=== PATIENT | male | born 1975 | race Caucasian/White ===

== ENCOUNTER 2016-12-11 12:51 | Emergency (ER) | payer BC, OTHER ==
[2016-12-11 13:00] VITALS: BP 132/80
[2016-12-11] MEDS ORDERED: ALBUTEROL SULFATE 2.5 MG/0.5 ML VIAL.NEB IH ONE ×2 (13:08→13:11)
--- NOTE | 2016-12-11 13:22 | ERNOTE ---
Medical Problem HPI - Narrative Date of Service: 12/11/16 - General Chief Complaint: Flu Symptoms Time Seen by Provider: 12/11/16 13:00 Source: patient Exam Limitations: no limitations - Immun/Allergies/Home Medications Immunizations: IMMUNIZATION HX History of Influenza Vaccine No Allergies/Adverse Reactions: Allergies ibuprofen Allergy (Verified 12/11/16 13:00) Hives Home Medications: HOME MEDICATIONS Albuterol Sulfate [Ventolin Hfa] 2 puff IH Q4H PRN #1 inhaler 12/11/16 [Last Taken Unknown] Doxycycline Monohydrate 100 mg PO BID #20 tablet 12/11/16 [Last Taken Unknown] Venlafaxine HCl [Effexor] 75 mg PO BID 12/11/16 [Last Taken Unknown] predniSONE [Prednisone] 3 tab PO DAILY #9 tab 12/11/16 [Last Taken Unknown] - History of Present History Narrative: Pt. comes in with c/o Dyspnea and SOB for a week and states that he was seen in the [facility] this morning and told he had pneumonia and sent here for treatment. Pt. denies any lab or xrays done at the clinic. Pt. denies any fevers, ear pain, NVD, abd pain, but does state that he has body aches from head to toe and chest pain that worsens with breathing. Review of Systems - Review of Systems Constitutional: Present: recent illness, malaise. Absent: fever, chills EYE: Present: no symptoms reported ENT: Present: nose congestion. Absent: ear pain, nasal drainage, sore throat Respiratory: Present: shortness of breath, cough, wheezing Cardiology: Present: chest pain. Absent: palpitations, edema Gastrointestinal/Abdominal: Present: no symptoms reported. Absent: nausea, vomiting, diarrhea Genitourinary: Present: no symptoms reported. Absent: frequency, decreased urinary output Musculoskeletal: Present: no symptoms reported. Absent: back pain, joint pain Skin: Present: no symptoms reported Neurological: Present: no symptoms reported. Absent: headache, dizziness/light- headedness, numbness, tingling All Other Systems: All systems neg except as marked - Patient's Past Medical History Patient History - Medical: ADHD, Depression Patient History - Cancer: No Hx of Cancer Patient History - Surgical Procedures: Appendectomy, Other - Social History Smoking Status: Current every day smoker Have you smoked in the past 12 months: Yes Physical Exam - Physical Exam General Appearance: Present: wd/wn, alert, no apparent distress Eye Exam: Normal inspection: bilateral, PERRL: bilateral, EOMI: bilateral Ears, Nose, Throat: Present: nasal congestion, sinus pain/drainage, pharyngeal erythema. Absent: abnormal TM (R), abnormal TM (L) Neck: Present: normal inspection, nontender. Absent: lymphadenopathy (R), lymphadenopathy (L) Respiratory: Present: no respiratory distress, normal breath sounds, no accessory muscle use, chest nontender, lungs clear Cardiovascular/Chest: Present: regular rate, rhythm, no murmur, normal peripheral pulses Gastrointestinal/Abdominal: Present: normal bowel sounds, nontender, nondistended, soft, no organomegaly Back Exam: Present: normal inspection, normal range of motion, no CVA tenderness , no vertebral tenderness Extremity Exam: Present: normal inspection, non-tender, no edema, normal range of motion Neurological Exam: Present: alert, oriented, normal mood/affect, no motor/ sensory deficits, 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 Absent: skin rash ED Progress - Results and Orders Patient's Lab Results:: I have reviewed the patient's lab results. - Vital Signs Patient's Vital Signs:: I have reviewed the patient's vital signs. Vital Signs: Vital Signs 12/11/16 12:56 Temperature 37.9 C H Pulse Rate 94 Respiratory 14 Rate Blood Pressure 132/80 O2 Sat by Pulse 92 Oximetry - EKG EKG: NSR EKG read: Interp. by me - X-Ray X-Ray #1 X-Ray: chest Interpretation: Interp. by me X-ray Comments: no consolidation, no infiltrate bronchial wall thickening. - Progress/Reassessment Chief Complaint: Flu Symptoms Departure - Departure Clinical Impression: Bronchitis Disposition: Home self-care Condition: Good Instructions: Acute Bronchitis Additional Instructions: Please follow up with primary provider in 2-3 days. Referrals: Martell Kinsey DO [Primary Care Provider] - Prescriptions: Albuterol Sulfate [Ventolin Hfa] 2 puff IH Q4H PRN #1 inhaler PRN Reason: Shortness Of Breath Doxycycline Monohydrate 100 mg PO BID #20 tablet predniSONE [Prednisone] 3 tab PO DAILY #9 tab
[2016-12-11 13:39] LABS: Hematocrit 48.2 % (42.0-52.0); Hemoglobin 16.7 gm/dL (13.5-18.0); Mean Cell Volume 89.8 fl (78-100); Mean Corpuscular Hemoglobin 31.1 pg (27-31); Mean Corpuscular Hgb Conc 34.6 g/dl (32-36); Mean Platelet Volume 10.6 fl (6.0-9.5); Neutrophil # 2.6 K/mm3 (1.3-6.0); Neutrophil % 64.7 % (42-75.0); Platelet Count 184 K/mm3 (150-450); Red Blood Count 5.37 M/mm3 (4.7-6.0); Red Cell Distribution Width 12.7 % (11.5-14.0); White Blood Count 4.1 K/mm3 (4.0-10.5)
[2016-12-11 13:54] LABS: ALT 20 U/L (19-67); AST 19 U/L (0-48); Albumin * 4.2 gm/dl (3.4-5.0); Alkaline Phosphatase * 83 U/L (50-170); Anion Gap 14.4 mmol/L (6.8-13.8); BUN/Creatinine Ratio 15.9 (9.0-21.6); Bilirubin, Total 0.7 mg/dL (0.0-1.1); Blood Urea Nitrogen 14 mg/dL (6-23); Ca. Corrected For Albumin 9.1 mg/dL (8.4-10.2); Calcium * 9.6 mg/dL (7.9-10.9); Carbon Dioxide 26.9 mmol/L (24-32.6); Chloride 99 mmol/L (97-106); Glucose * 141 mg/dL (70-110); Potassium 3.3 mmol/L (3.4-4.6); Sodium 137 mmol/L (132-142); Total Protein 7.7 gm/dL (6.2-8.2); Troponin I Less than 0.017 ng/ml (0.00-0.10)
== END 2016-12-11 14:28 | disposition home or self-care (01) ==
LOC: ER 12:51
DX: J20.9 Acute bronchitis, unspecified (principal); F17.210 Nicotine dependence, cigarettes, uncomplicated; F32.9 Major depressive disorder, single episode, unspecified